=== PATIENT | male | born 1990 | race Caucasian/White ===

== ENCOUNTER 2018-05-04 22:29 | Emergency (ER) | payer MEDICARE ==
[~2018-05-04] VITALS: Ht 167.6 cm; Wt 117.9 kg
[~2018-05-04 22:29] MED LIST: KLONOPIN0.5 MG; PRILOSEC40 MG; TRAZODONE HCL100 MG
--- OUTSIDE RECORDS SUMMARY | 2018-05-04 22:31 | XMS REPORT | Summary of Care ---
Author Organization Unknown Address Unknown Phone Unavailable Encounter HQ Josefantr_jose([facility]) [id number] Date(s): 09/16/13 - 09/16/13 [facility] [address] Outpatient Imaging - [address] [address]- [place] Discharge Disposition: Home Physician Attending: Ray Oliver MD Reason for Visit 789.00 - ABDMNAL PAIN UN Problem List No data available for this section Allergies, Adverse Reactions, Alerts Substance Reaction Severity Status NKDA Active Medications No data available for this section Medications Administered During Your Visit No data available for this section Immunizations No data available for this section Social History Social History Type Response
--- OUTSIDE RECORDS SUMMARY | 2018-05-04 22:31 | XMS REPORT | CCD ---
Author Author Auto Generated Organization [facility] Outpatient Imaging - [place] Address Unknown Phone Unavailable Care Team Providers Care Optics Engineer Name Role Phone Ray Oliver CP Allergies, Adverse Reactions, Alerts Substance Reaction Status NKDA Active
--- OUTSIDE RECORDS SUMMARY | 2018-05-04 22:31 | XMS REPORT | Continuity of Care Document ---
Author Author [facility] Address Unknown Phone Unavailable Problems Problem Status Onset Date Classification Date Reported Comments Source M54.5 - LOW BACK PAIN Active 07/19/2016 MARK Vazquze 794.8 - ABN LIVER FUNCT Active 07/17/2011 [facility] Medications Medication Details Route Status Patient Instructions Ordering Provider Order Date Source Allergies, Adverse Reactions, Alerts Substance Category Reaction Severity Reaction type Status Date Reported Comments Source Immunizations Immunization Date Given Site Status Last Updated Comments Source Results Order Name Results Value Reference Range Date Interpretation Comments Source Spine lumbar 2 or 3 views DX Spine lumbar 2 or 3 views DX EXAM: Spine lumbar 2 or 3 views DX HISTORY: M54.5 Low back pain COMPARISON: None There is mild levocurvature measuring 10 degrees centered at the mid lumbar spine. There is subtle (2 to 3 mm) retrolisthesis of L5 on S1 and L4 on L5. AP alignment is otherwise normal. There is mild disc space narrowing at L5-S1. Advanced facet arthropathy at the lumbosacral junction. Vertebral body heights are maintained. IMPRESSION: No acute abnormality. 07/19/2016 - - Read by: Stacy Saavedra MD Dictated Date/time: 07/19/16 13:03 Electronically Signed by: Stacy Saavedra MD 07/19/16 13:06 FINAL REPORT MARK Vazquez Spine sacrum AP/Lat DX Spine sacrum AP/Lat DX Exam: X-ray of the sacrum, 2 views Reason for Exam: M54.5 Low back pain Comparison Exam: None Discussion: No acute bony abnormalities identified. Mild right-sided sacroiliitis. No suspicious osteoblastic or osteolytic lesions seen to suggest pathologic involvement. Impression: 1. No acute bony abnormalities identified. Mild right-sided sacroiliitis. 07/19/2016 - - Read by: Arturo Olson MD Dictated Date/time: 07/19/16 13:47 Electronically Signed by: Arturo Olson MD 07/19/16 13:50 FINAL REPORT [facility] Abdomen complete US Abdomen complete US ABDOMEN ULTRASOUND CLINICAL HISTORY: Abdominal pain COMPARISON IMAGING: Previous liver ultrasound of 07/24/2011 FINDINGS: Liver: Measures 17.1 cm in length (normal: 13-17 cm). Echogenicity is again seen to be heterogeneous, suggestive of hepatic steatosis. Findings are not significantly changed compared to the previous exam. No suspicious lesion or surface nodularity. Portal vein is patent with hepatopedal flow. Biliary: No gallstones, gallbladder wall thickening, or sonographic Granados's sign. There is no biliary duct dilation. Mid common bile duct measures 4 mm in diameter. Pancreas: Obscured by bowel gas and unable to be evaluated. Spleen: Measures 10.3 cm in maximal dimension (normal < 13 cm). No focal lesion is seen. Kidneys: Right and left measure 10.4 and 10.7 cm in length, respectively (normal: 9-12 cm). No hydronephrosis, suspicious renal mass, or large shadowing stone. Vascular: Visualized portions of the IVC are patent. No obvious aneurysmal dilatation of the aorta. IMPRESSION: Mild hepatomegaly with increased echogenicity, suggestive of steatosis. Findings are overall stable compared to the previous study. 09/16/2013 - - Read by: Vicenta Reveles MD Dictated Date/time: 09/16/13 11:13 Electronically Signed by: Vicenta Reveles MD 09/16/13 11:16 FINAL REPORT [facility] Vital Signs Vital Sign Value Date Comments Source Encounters Location Location Details Encounter Type Encounter Number Reason For Visit Attending Provider ADM Date DC Date Status Source OD [id number] 794.8 - ABN LIVER FUNCT RAY OLIVER 07/24/2011 Active [facility] [place] [facility] [id number] Ray Oliver 09/16/2013 09/17/2013 [facility] [place] [facility] [id number] Ray Oliver 07/19/2016 07/20/2016 [facility] Procedures Procedure Code Date Perfomer Comments Source
--- OUTSIDE RECORDS SUMMARY | 2018-05-04 22:32 | XMS REPORT ---
Author [facility] Address Unknown Phone Unavailable Care Team Providers Care Certified Coder Name Role Phone Unavailable Unavailable Payers Payer Name Policy Type Policy Number Effective Date Expiration Date Problems This patient has no known problems. Allergies, Adverse Reactions, Alerts Allergy Name Allergy Type Status Severity Reaction(s) Onset Date Inactive Date Treating Clinician Comments quetiapine DA Active [place] 2016-07-11 00:00:00 aripiprazole DA Active [place] 2016-07-11 00:00:00 Medications This patient has no known medications.
--- OUTSIDE RECORDS SUMMARY | 2018-05-04 22:32 | XMS REPORT | Summary of Care ---
Author Author [facility] - [place] Organization [facility] [place] Address Unknown Phone Unavailable Encounter HQ Encntr_alidiana(FIN) [id number] Date(s): 07/19/16 - 07/19/16 [facility] Outpatient Imaging - [place] [address] [phone] Discharge Disposition: Home or Self Care Attending Physician: Ray Oliver MD Vital Signs No data available for this section Problem List No data available for this section Allergies, Adverse Reactions, Alerts Substance Reaction Severity Status NKDA Active Medications No data available for this section Results No data available for this section Immunizations No data available for this section Procedures No data available for this section Social History Social History Type Response Assessment and Plan No data available for this section
--- NOTE | 2018-05-04 23:07 | Diagnostic Imaging Report ---
EXAM: HAND 3+ VIEWS RIGHT DATE: 05/04/2018 10:34 PM INDICATION: Injury COMPARISON: None FINDINGS: No fracture or subluxation. No significant degenerative or erosive changes. IMPRESSION: No acute findings. Signed by: Dr. Hiram Krishnan MD on 05/04/2018 11:04 PM
== END 2018-05-04 23:14 | disposition home or self-care (01) ==
LOC: ER 22:29
DX: S60.221A Contusion of right hand, initial encounter (principal); W22.09XA Striking against other stationary object, initial encounter; X79.XXXA Intentional self-harm by blunt object, initial encounter; Y92.008 Other place in unspecified non-institutional (private) residence as the place of occurrence of the external cause; I10 Essential (primary) hypertension; E11.9 Type 2 diabetes mellitus without complications; E03.9 Hypothyroidism, unspecified; F41.9 Anxiety disorder, unspecified; F32.9 Major depressive disorder, single episode, unspecified; K21.9 Gastro-esophageal reflux disease without esophagitis
CPT/HCPCS: 99283

== ENCOUNTER → 2021-11-02 | Outpatient (CLI) | payer MEDICARE | LOC: RAD 15:33 | PROVIDERS: ATTEND Nurse Practitioner Gerontology | DX: M25.511 Pain in right shoulder (principal); M79.601 Pain in right arm ==